=== PATIENT | female | born 1980 | race Caucasian/White ===

== ENCOUNTER → 2021-03-27 09:02 | Outpatient (CLI) | payer OTHER, SELFPAY ==
--- NOTE | ~2021-03-27 | MR_ITS ---
EXAMINATION: MR shoulder RT wo con DATE: 03/27/2021 09:50 INDICATION: Impingement syndrome of the right shoulder with a couple months of right shoulder pain TECHNIQUE: Magnetic resonance imaging (MRI) of the right shoulder was performed without intravenous c ontrast. Sequences included axial PD-weighted FS FSE, coronal oblique PD-weighted FS FSE, coronal obl ique T2-weighted FS FSE, sagittal PD-weighted FS FSE, and sagittal T1-weighted SE. COMPARISON: None. FINDINGS: Coracoacromial arch: The acromion undersurface is curved in morphology (type II) with lateral downsloping. The coracoacrom ial ligament is normal. Minimal acromioclavicular osteoarthritis. Rotator cuff: Mild supraspinatus and infraspinatus tendinopathy with moderate tendinopathy of the conjoined portion of the tendons without discrete tear. The teres minor and subscapularis tendons are normal. Normal r otator cuff muscle bulk and signal. Biceps tendon, glenoid labrum and glenohumeral cartilage: Long head of the biceps tendon is normal. There is normal variant accessory head of the long head bic eps tendon which is contiguous with the supraspinatus tendon. Small tear at the 10:00 through 11:00 p osition of the posterior superior glenoid labrum. Glenohumeral cartilage is normal. Fluid: Physiologic amount of fluid in the glenohumeral joint and biceps tendon sheath. No loose osteochondra l bodies. Small amount of fluid in the subacromial/subdeltoid bursa consistent with mild bursitis. Bones: Normal marrow signal with no edema, fracture or abnormal marrow replacing process. Cystic change tk g the greater tuberosity footplate of the conjoined portion of the tendon likely related to chronic r otator cuff disease. IMPRESSION: 1. Moderate tendinopathy without discrete tear at the conjoined portion of the supraspinatus and infr aspinatus tendons. 2. Small tear at the posterior superior glenoid labrum. 3. Mild subacromial/subdeltoid bursitis. Reviewed, dictated and finalized at location B. [employer] TECH[employer]OLOGY COORDINATOR IMPRESSION: 1. Moderate tendinopathy without discrete tear at the conjoined portion of the supraspinatus and infraspinatus tendons. 2. Small tear at the posterior superior glenoid labrum. 3. Mild subacromial/subdeltoid bursitis.
== END ==
PROVIDERS: Visit Provider Chiropractor
DX: S43.431A Superior glenoid labrum lesion of right shoulder, initial encounter (principal); M75.41 Impingement syndrome of right shoulder; M75.51 Bursitis of right shoulder
CPT/HCPCS: 73221